=== PATIENT | male | born 1950 | race African-American/Black ===

== ENCOUNTER 2016-12-18 21:27 | Emergency (ER) | payer BC, OTHER ==
[~2016-12-18] VITALS: Ht 175.3 cm; Wt 108.9 kg
[2016-12-18] MEDS ORDERED: ATENOLOL 50MG T50 M1 PO (22:30)
[2016-12-18] MEDS ORDERED: HYDROCHLOROTHIA25 M2 PO (22:30)
[2016-12-18] MEDS ORDERED: NORVASC10 MG PO (22:31)
[2016-12-18] MEDS ORDERED: LISINOPRIL20 MG PO (22:31)
[2016-12-18] MEDS ORDERED: METFORMIN HCL500 MG PO (22:31)
[2016-12-18] MEDS ORDERED: ASPIR 8181 MG PO (22:31)
[2016-12-18] MEDS ORDERED: FISH OIL 1,001000 M2 PO (22:32)
[2016-12-18] MEDS ORDERED: JANUVIA100 MG PO (22:32)
[2016-12-18 22:34] LABS: URINE BILIRUBIN NEGATIVE (Negative); URINE BLOOD 3+ (Negative); URINE COLOR YELLOW; URINE GLUCOSE-RANDOM* 2+ (Negative); URINE KETONES TRACE (Negative); URINE PROTEIN (DIPSTICK) 1+ (Negative)
[2016-12-18 22:49] LABS: URINE LEUKOCYTES-REFLEX 1+ (Negative)
[2016-12-18 22:52] LABS: CASTS None Seen /LPF (None Seen); SQUAMOUS None Seen /LPF (0-3); URINE RBC 3-10 Few /HPF (0-2); URINE WBC-REFLEX 6-15 Few /HPF (0-5)
[2016-12-18 22:53] LABS: CRYSTALS None Seen /LPF (None Seen)
[2016-12-18] MEDS ORDERED: FLOMAX0.4 MG PO (23:01)
[2016-12-18] MEDS ORDERED: AUGMENTIN 875-1 EACH PO (23:01)
[2016-12-18 23:22] VITALS: BP 172/92
== END 2016-12-18 23:20 | disposition home or self-care (01) ==
LOC: ER 21:27
PROVIDERS: Emergency Medicine
DX: N39.0 Urinary tract infection, site not specified (principal); F10.99 Alcohol use, unspecified with unspecified alcohol-induced disorder

== ENCOUNTER 2018-05-20 20:13 | Emergency (ER) | payer BC, OTHER ==
[~2018-05-20] VITALS: Ht 175.3 cm; Wt 107.0 kg
[~2018-05-20 20:13] MED LIST: ASPIR 8181 MG PO; ATENOLOL 50MG T50 M1 PO; AUGMENTIN 875-1 EACH PO; FISH OIL 1,001000 M2 PO; FLOMAX0.4 MG PO; HYDROCHLOROTHIA25 M2 PO; JANUVIA100 MG PO; LIPITOR 20 MG T20 M1 PO; LISINOPRIL20 MG PO; METFORMIN HCL500 MG PO; MULTIVITAMINS1 EAC7 PO; NORVASC10 MG PO; TRULICITY0.75 MG/0. SUBQ; XALATAN2.5 ML OPHTHALMIC
[2018-05-20] MEDS ORDERED: PREDNISONE 20 M20 MG PO (20:59)
[2018-05-20] MEDS ORDERED: PEPCID20 MG PO (20:59)
[2018-05-20 21:09] VITALS: BP 109/71
== END 2018-05-20 21:10 | disposition home or self-care (01) ==
LOC: ER 20:13
DX: T78.40XA Allergy, unspecified, initial encounter (principal); L29.9 Pruritus, unspecified; X58.XXXA Exposure to other specified factors, initial encounter

== ENCOUNTER → 2019-10-19 | Outpatient (CLI) | payer OTHER ==
[~2019-10-19] MED LIST changes: +PEPCID20 MG PO; +PREDNISONE 20 M20 MG PO
[2019-10-19 10:49] LABS: CREATININE 1.1 mg/dL (0.7-1.3)
== END ==
LOC: CAT 10:00
PROVIDERS: ATTEND Family Medicine
DX: N28.1 Cyst of kidney, acquired (principal); K57.30 Diverticulosis of large intestine without perforation or abscess without bleeding; E27.8 Other specified disorders of adrenal gland; K56.41 Fecal impaction

== ENCOUNTER 2021-03-17 00:24 | Emergency (ER) | payer OTHER ==
[~2021-03-17] VITALS: Ht 152.4 cm; Wt 96.2 kg
[2021-03-17] MEDS ORDERED: CYCLOBENZAPRIN7.5 MG PO (00:34)
[2021-03-17 01:21] LABS: ABSOLUTE NEUTROPHILS 5.8 thou/uL (1.4-8.2); BASOPHILS 0.4 % (0.0-2.0); EOSINOPHILS 1.2 % (0.0-3.0); HEMATOCRIT 40.5 % (42.0-52.0); HEMOGLOBIN 13.3 gm/dL (14.0-18.0); LYMPHOCYTES 25.8 % (24.0-44.0); MCH 28.3 pg (26.0-34.0); MCHC 32.8 g/dL (28.0-37.0); MCV 86.5 fL (80.0-100.0); MONOCYTES 9.4 % (1.0-8.0); PLATELET COUNT 246 thou/uL (150-400); POLYS 63.2 % (36.0-66.0); RBC 4.68 mil/uL (4.50-6.00); RDW 14.7 % (10.5-14.5); WBC 9.2 thou/uL (4.0-11.0)
[2021-03-17 01:28] LABS: POTASSIUM 3.6 mmol/L (3.5-5.1)
[2021-03-17 01:40] LABS: ALBUMIN 3.5 g/dL (3.4-5.0); TOTAL PROTEIN 6.9 g/dL (6.4-8.2)
[2021-03-17 04:30] LABS: CHOLESTEROL 101 mg/dL (<200); HDL CHOLESTEROL 51 mg/dL (>40); LDL CHOLESTEROL 37 mg/dL (<100); TRIGLYCERIDE 68 mg/dL (<150); VLDL 14 mg/dL (<40)
[2021-03-17 04:57] LABS: SERUM ASSESSMENT Clear
--- NOTE | 2021-03-17 07:27 | EKG ---
[address] [employer] [place] [address] ELECTROCARDIOGRAM REPORT Name: CHICA HACKETT Room #: REG [facility]#: [id number] Admission: 03/17/21 Attend Phys: Discharge: Date of : 54 Report #: [id number] [facility] ED Test Date: 2021-03-17 Test Time: 00:30:00 Pat Name: CHICA HACKETT Department: Room: Gender: M Launchman: RICK : 1950 Requested By: Lraa Sullivan Order Number: [id number] MD: Ryne Meléndez Measurements Intervals [place] Rate: 93 P: -5 [place]: 183 QRS: -30 QRSD: 90 T: 72 QT: 341 QTc: 425 Interpretive Statements Sinus rhythm Left axis deviation Low voltage, precordial leads No previous ECG available for comparison Electronically Signed On 03-17-2021 7:27:11 MEDICAL RECORD CODER by Ryne Meléndez [email or web address] <ELECTRONICALLY SIGNED> By: Ryne Meléndez MD, [facility] 03/17/21 0727 0030 0030 Ryne Meléndez MD, FACC /EPI
[2021-03-17 10:23] VITALS: BP 126/72
--- NOTE | 2021-03-17 17:07 | EXE ---
[facility] [address] STRESS ECHOCARDIOGRAM Name: CHICA HACKETT [id number] Admission: 03/17/21 Attend Phys: Discharge: 03/17/21 Date of : 54 Report #: [id number] THIS REPORT FOR: cc: Cooper Jacobson James A. DO Mancuso, Gerald M. MD [facility] ~ APPROVED REPORT Study performed: 03/17/2021 08:26:58 Exam: Stress Echocardiogram Indication: Chest pain Patient Location: ER Room #: 8 Status: routine Ht: 5 ft 9 in HR: 88 bpm BP: 128/84 mmHg Rhythm: NSR Medical History Medical History: Diabetes, HTN Cardiac Risk Factors: HTN, Diabetes (non-insulin) Exercise History: Physically active Procedure The patient underwent an Exercise Stress Test using the Tomas Protocol. Blood pressure, heart rate, and EKG were monitored. An Echocardiogram was performed by orthotic finish grinding technician in four stages in quad fashion. At peak stress, four selected images were obtained and placed side by side with resting images for comparison. Stress Test Details Stress Test: Exercise stress testing was performed using a Tomas protocol. HR Resting HR: 88 bpm Max Heart Rate (APMHR): 152 bpm Max HR Achieved: 171 bpm Target HR (85% APMHR): 129 bpm % of APMHR: 112 Recovery HR: 103 bpm HR response to stress: Normal HR response to stress BP Resting BP: 128/84 mmHg [facility] [address] [place] [address] STRESS ECHOCARDIOGRAM Name: CHICA HACKETT Room #: [facility]#: [id number] Admission: 03/17/21 Attend Phys: Discharge: 03/17/21 Date of : 54 Report #: [id number] Max BP: 178/70 mmHg Recovery BP: 110/60 mmHg BP response to stress: Normal blood pressure response to stress. ECG Clinical Reason for Termination: Maximal effort Exercise duration: 6 min 21 sec Highest Stage Achieved: Stage 3: 3.4 mph at 14% grade. Exercise capacity: 8 METs Overall Exercise Capacity for Age: Good Pre-Stress Echo The resting Echocardiogram showed normal left ventricular contractility with an estimated Ejection Fraction of about >55%. The resting echocardiogram demonstrated normal wall motion in all wall segments. Post-Stress Echo The stress Echocardiogram showed normal left ventricular contractility with an estimated Ejection Fraction of about 65-70%. Compared to rest, there were no stress-induced wall motion abnormalities. Clinical Color flow doppler was normal Conclusion Clinical Response: Non-ischemic Exercise Capacity: Average Stress ECG Response: Non-ischemic Stress Echo Images: Non-ischemic No prior study available for comparison. Other Information Study Quality: Good <ELECTRONICALLY SIGNED> By: Abe Wright MD, [facility] 03/17/211705 05 05 Abe Wright MD, FACC /INF
== END 2021-03-17 10:25 | disposition home or self-care (01) ==
LOC: ER 00:24
PROVIDERS: Emergency Medicine
DX: R07.89 Other chest pain (principal); E11.9 Type 2 diabetes mellitus without complications; I10 Essential (primary) hypertension; E78.5 Hyperlipidemia, unspecified; Z79.899 Other long term (current) drug therapy; Z79.82 Long term (current) use of aspirin